=== PATIENT | male | born 1945 | race Caucasian/White ===

== ENCOUNTER 2017-03-28 20:48 | Emergency (ER) | payer MEDICARE ==
--- NOTE | 2017-03-28 21:06 | EDM.PDOC ---
[id number] INFECTED RT EYE Time Seen by Provider: 03/28/17 21:00 Source of Information: Reports: Patient History Limitations: Reports: No Limitations - History of Present Illness INITIAL COMMENTS - FREE TEXT/NARRATIVE: Presented to the ER with concerns of right eyelid infection. Reports that he recently had right eye lid surgery but over the past Few days he noticed some redness and pain at the Lower eyelid and he was concerned that he might have an infection. He called the clinic and was told to come to the ER for further evaluation. Onset: Gradual Duration: Day(s): (ongoing for the past few days) Improves with: Reports: None Worsens with: Reports: None Associated Symptoms: Reports: No Other Symptoms - Related Data Allergies Allergy/AdvReac Type Severity Reaction Status Date / Time No Known Allergies Allergy Verified 05/16/16 12:38 Home Meds: Home Meds Hydrocodone/Acetaminophen [Hydrocodon-Acetaminophn 10-660] 1 each PO TID [History] Terazosin HCl [Terazosin] 4 mg PO DAILY 09/10/13 [History] Albuterol [Ventolin HFA] 2 puff INH Q4HR PRN 01/14/16 [History] Citalopram Hydrobromide [Citalopram HBr] 20 mg PO DAILY 01/14/16 [History] Tiotropium [Spiriva Handihaler] 1 puff INH DAILY 05/16/16 [History] Famotidine [Pepcid AC] 10 mg PO DAILY 06/07/16 [History] Cephalexin [Keflex] 500 mg PO TID #21 cap 03/28/17 [Rx] Past Medical History HEENT History: Reports: Hard of Hearing, Impaired Vision Respiratory History: Reports: Bronchitis, Recurrent, COPD, Other (See Below) Other Respiratory History: emphysema Musculoskeletal History: Reports: Other (See Below) Other Musculoskeletal History: L3,L4,L5 injury Psychiatric History: Reports: Depression, Mood Swings - Past Surgical History Other HEENT Surgeries/Procedures: BILATERAL HEARING AID GI Surgical History: Reports: Appendectomy Male Surgical History: Reports: Prostate Biopsy Social & Family History - Family History Family Medical History: Noncontributory - Tobacco Use Smoking Status *Q: Current Every Day Smoker Years of Tobacco use: 54 Packs/Tins Daily: 1 Used Tobacco, but Quit: No Second Hand Smoke Exposure: No - Caffeine Use Caffeine Use: Reports: None - Alcohol Use Days Per Week of Alcohol Use: 0 - Recreational Drug Use Recreational Drug Use: Yes Drug Use in Last 12 Months: Yes Recreational Drug Type: Reports: Marijuana/Hashish Recreational Drug Use Frequency: Daily ED ROS GENERAL - Review of Systems Review Of Systems: See Below Constitutional: Reports: No Symptoms HEENT: Reports: Other (Erythema of the right Lower eyelid) Respiratory: Reports: No Symptoms Cardiovascular: Reports: No Symptoms Endocrine: Reports: No Symptoms GI/Abdominal: Reports: No Symptoms : Reports: No Symptoms Musculoskeletal: Reports: No Symptoms Skin: Reports: No Symptoms Neurological: Reports: No Symptoms Psychiatric: Reports: No Symptoms Hematologic/Lymphatic: Reports: No Symptoms Immunologic: Reports: No Symptoms ED EXAM, GENERAL - Physical Exam Exam: See Below Exam Limited By: No Limitations General Appearance: Alert, WD/WN, No Apparent Distress Eye Exam: Right Eye: Other (erythema of the right lower eyelid) Ears: Normal External Exam, Normal Canal, Hearing Grossly Normal, Normal TMs Ear Exam: Bilateral Ear: Auricle Normal, TM normal Nose: Normal Inspection, Normal Mucosa Throat/Mouth: Normal Inspection, Normal Lips, Normal Teeth, Normal Oropharynx, Normal Voice, No Airway Compromise Head: Atraumatic, Normocephalic Neck: Normal Inspection, Supple, Non-Tender Respiratory/Chest: No Respiratory Distress, Lungs Clear, Normal Breath Sounds Cardiovascular: Normal Peripheral Pulses, Regular Rate, Rhythm GI/Abdominal: Normal Bowel Sounds, Soft, Non-Tender, No Organomegaly, No Distention, No Abnormal Bruit (Male) Exam: Deferred Rectal (Males) Exam: Deferred Back Exam: Normal Inspection Extremities: Normal Inspection, Normal Range of Motion, Non-Tender, No Pedal Edema, Normal Capillary Refill Neurological: Alert, Oriented, CN II-XII Intact, Normal Cognition, Normal Gait Psychiatric: Normal Affect, Normal Mood Skin Exam: Warm Lymphatic: No Adenopathy Course - Vital Signs Last Recorded V/S: Last Vital Signs Temp 37.0 C 03/28/17 21:12 Pulse 96 03/28/17 21:12 Resp 18 03/28/17 21:12 BP 124/66 03/28/17 21:12 Pulse Ox 95 03/28/17 21:12 - Orders/Labs/Meds Meds: Medications Discontinued Medications Generic Name Dose Route Start Last Admin Trade Name Carlos PRN Reason Stop Dose Admin Cephalexin 500 mg 03/28/17 21:23 03/28/17 21:43 Keflex PO 03/28/17 21:24 500 mg ONETIME ONE Administration Departure - Departure Time of Disposition: 21:02 Disposition: Home, Self-Care 01 Condition: Good Clinical Impression: Blepharitis Qualifiers: Blepharitis type: unspecified type Laterality: right Eyelid: lower Qualified Code(s): H01.002 - Unspecified blepharitis right lower eyelid - Discharge Information Prescriptions: Cephalexin [Keflex] 500 mg PO TID #21 cap Instructions: Blepharitis Referrals: PCP,Not In Area [Primary Care Provider] - Forms: ED Department Discharge Additional Instructions: Follow with PCP Tylenol for pain Return if symptoms worsen Call your Physician or Return to Emergency Department if: * Your condition worsens in any way. * You develop fever greater than 100.4. * You have vomitting that does not stop with medications. * You have pain that is not controlled with medications.
[2017-03-28] MEDS ORDERED: Cephalexin 500 MG Cap PO ONE (21:23)
[2017-03-28 21:25] VITALS: BP 124/66
== END 2017-03-28 21:43 | disposition home or self-care (01) ==
LOC: FB.ED 20:48
DX: H01.002 Unspecified blepharitis right lower eyelid (principal); J44.9 Chronic obstructive pulmonary disease, unspecified; F17.210 Nicotine dependence, cigarettes, uncomplicated; F32.9 Major depressive disorder, single episode, unspecified; Z90.49 Acquired absence of other specified parts of digestive tract; Z79.899 Other long term (current) drug therapy
CPT/HCPCS: 99283; A9270; 99282

== ENCOUNTER 2019-01-18 09:34 | Emergency (ER) | payer MEDICARE ==
[2019-01-18 10:04] VITALS: BP 137/94
--- NOTE | 2019-01-18 10:13 | EDM.PDOC ---
ED HPI GENERAL MEDICAL PROBLEM - General Chief Complaint: Respiratory Problem Stated Complaint: SOB Time Seen by Provider: 01/18/19 09:45 Source of Information: Reports: Patient History Limitations: Reports: No Limitations - History of Present Illness INITIAL COMMENTS - FREE TEXT/NARRATIVE: here with concern for shortness of breath which started this morning. He states his apartment got very cold last night and he woke up this morning cold and has had trouble catching his breath. Has COPD and had a lung test 5 months ago in [place] which was "not good." Does not have any nebulizers at home nor any oxygen. Does not feel lightheaded, although reported on arrival his fingers were slightly tingly. No chest pain. Chronic cough, not worse. Slight stuffy nose. Chilled, no fever, no chest pain. States his heart works good. Using spiriva once daily and albuterol PRN, less than once per week. Has never had feeling like this before, where he just can't get warm. Also wondering if his hands are blue. Smoked 1ppd cigarettes since age 15. Also smokes THC for chronic back pain. - Related Data Allergies Allergy/AdvReac Type Severity Reaction Status Date / Time No Known Allergies Allergy Verified 01/18/19 09:53 Home Meds: Home Meds Hydrocodone/Acetaminophen [Hydrocodon-Acetaminophn 10-660] 1 each PO TID [History] Terazosin HCl [Terazosin] 4 mg PO DAILY 09/10/13 [History] Albuterol [Ventolin HFA] 2 puff INH Q4HR PRN 01/14/16 [History] Citalopram Hydrobromide [Citalopram HBr] 20 mg PO BEDTIME 01/14/16 [History] Tiotropium [Spiriva Handihaler] 1 puff INH DAILY 05/16/16 [History] Cyclobenzaprine HCl 5 mg PO DAILY 01/18/19 [History] Tamsulosin HCl 0.4 mg PO BEDTIME 01/18/19 [History] Past Medical History HEENT History: Reports: Hard of Hearing, Impaired Vision Respiratory History: Reports: Bronchitis, Recurrent, COPD Other Respiratory History: emphysema Musculoskeletal History: Reports: Other (See Below) Other Musculoskeletal History: L3,L4,L5 injury Psychiatric History: Reports: Depression, Mood Swings - Infectious Disease History Infectious Disease History: Reports: Measles, Scarlet Fever - Past Surgical History Other HEENT Surgeries/Procedures: BILATERAL HEARING AID GI Surgical History: Reports: Appendectomy Male Surgical History: Reports: Prostate Biopsy Social & Family History - Family History Family Medical History: Noncontributory - Tobacco Use Smoking Status *Q: Heavy Tobacco Smoker Tobacco Use Within Last Twelve Months: Cigarettes Years of Tobacco use: 68 Smoking Cessation Information Provided To Patient: Yes Smoking Cessation Information Given Comment: has previously tried chantix, patch , plans to try hypnosis next - Caffeine Use Caffeine Use: Reports: Coffee - Alcohol Use Alcohol Use History: No - Recreational Drug Use Recreational Drug Type: Reports: Marijuana/Hashish (for his back pain) ED ROS GENERAL - Review of Systems Review Of Systems: See Below Constitutional: Reports: Chills. Denies: Fever, Weakness, Night Sweats, Diaphoresis, Decreased Appetite HEENT: Reports: No Symptoms Respiratory: Reports: Shortness of Breath, Cough. Denies: Pleuritic Chest Pain , Hemoptysis Cardiovascular: Reports: No Symptoms. Denies: Chest Pain, Blood Pressure Problem, Edema GI/Abdominal: Denies: Abdominal Pain, Diarrhea, Decreased Appetite, Nausea, Vomiting : Reports: No Symptoms Musculoskeletal: Reports: Back Pain (chronic ) Neurological: Denies: Dizziness, Headache, Syncope, Difficulty Walking Hematologic/Lymphatic: Denies: Easy Bleeding, Easy Bruising ED EXAM, GENERAL - Physical Exam Exam: See Below Exam Limited By: No Limitations General Appearance: Alert, Anxious, Other (rapid breathing- appears to be hyperventilating ) Eye Exam: Bilateral Eye: PERRL Ears: Normal External Exam, Normal TMs, Hearing Loss Nose: Normal Inspection. No: Nasal Drainage Throat/Mouth: Normal Inspection, Normal Oropharynx, Normal Voice, No Airway Compromise Neck: Supple. No: Lymphadenopathy (R), Lymphadenopathy (L) Respiratory/Chest: Lungs Clear, No Accessory Muscle Use, Chest Non-Tender, Other (can hold breath for extended timeframe when coached. Stops breathing rapidly when distracted ). No: Crackles, Rales, Wheezing, Prolonged Expiration Cardiovascular: Normal Peripheral Pulses, Regular Rate, Rhythm, No Edema Peripheral Pulses: 2+: Radial (L), Radial (R), Posterior Tibial (L), Posterior Tibial (R) GI/Abdominal: Normal Bowel Sounds, Soft, Non-Tender Extremities: Normal Inspection, Normal Range of Motion Neurological: Alert, Oriented, Normal Cognition, Normal Gait Psychiatric: Anxious Skin Exam: Warm, Dry, Intact Course - Vital Signs Text/Narrative:: initial exam completed. Patient very anxious, breathing rapidly, quite fixated on how cold his apartment was last night and needing oxygen because he can't catch his breath. Vitals and sats normal except for rapid breathing. Lungs clear, no cough noted, minimal decrease in breath sounds; seems more to be hyperventilating. Calmed some with reassurance. Will get labs to r/o occult infection. Last Recorded V/S: Last Vital Signs Temp 36.5 C 01/18/19 09:34 Pulse 69 01/18/19 09:34 Resp 22 H 01/18/19 09:34 BP 137/94 H 01/18/19 09:34 Pulse Ox 97 01/18/19 09:34 - Orders/Labs/Meds Labs: Laboratory Tests 01/18/19 01/18/19 Range/Units 10:18 10:18 WBC 10.1 (4.5-12.0) X10-3/uL RBC 4.24 L (4.30-5.75) x10(6)uL Hgb 13.6 (13.5-17.8) g/dL Hct 40.6 (30.0-51.3) % MCV 95.7 (80-96) fL MCH 32.0 (27.7-33.6) pg MCHC 33.4 (32.2-35.4) g/dL RDW 13.3 (11.5-15.5) % Plt Count 220 (125-369) X10(3)uL Sodium 141 (135-145) mmol/L Potassium 4.6 (3.5-5.3) mmol/L Chloride 104 (100-110) mmol/L Carbon Dioxide 29 (21-32) mmol/L BUN 9 (7-18) mg/dL Creatinine 0.9 (0.70-1.30) mg/dL Est Cr Clr Drug Dosing 53.13 mL/min Estimated GFR (MDRD) > 60 (>60) BUN/Creatinine Ratio 10.0 (9-20) Glucose 93 (80-116) mg/dL Calcium 9.0 (8.6-10.2) mg/dL - Re-Assessments/Exams Free Text/Narrative Re-Assessment/Exam: 01/18/19 10:37 patient greatly reassured and much calmer, able to give a bit more history. Wants to go, thinks he just hyperventilated. Encouraged to wait for labs to make sure no infection given his reported cough and chills. He thinks he was just cold from overnight and says the cough is chronic, and that his nose was slightly plugged this morning which may have been why he was feeling he couldn' t catch his breath, though he was able to clear it on the way here. A few minutes later standing at desk and appears calm and comfortable, chatting with nursing, asking to go. Of note, did not hear him cough while in department. Labs resulted during this time- all within normal limits discharge completed - no change in therapy, no refills needed, f/u as scheduled with PCP on friday01/18/19 10:47 Departure - Departure Time of Disposition: 10:40 Disposition: Home, Self-Care 01 Condition: Good Clinical Impression: Hyperventilation, Anxiety about health COPD (chronic obstructive pulmonary disease) Qualifiers: COPD type: emphysema Emphysema type: unspecified Qualified Code(s): J43.9 - Emphysema, unspecified - Discharge Information *PRESCRIPTION DRUG MONITORING PROGRAM REVIEWED*: No *COPY OF PRESCRIPTION DRUG MONITORING REPORT IN PATIENT MEREDITH: No Instructions: Hyperventilation, Steps to Quit Smoking Referrals: PCP,Not In Area [Primary Care Provider] - Forms: ED Department Discharge Additional Instructions: continue to work on quitting smoking if panicked/hyperventilating - hold breath for 6 seconds, then breath out and back in, hold breath for 6 seconds, until feeling more calm albuterol as needed just like you are doing spiriva daily followup with PCP as scheduled
== END 2019-01-18 10:35 | disposition home or self-care (01) ==
LOC: FB.ED 09:34
DX: J43.9 Emphysema, unspecified (principal); R06.4 Hyperventilation; F41.9 Anxiety disorder, unspecified; F17.210 Nicotine dependence, cigarettes, uncomplicated; Z79.899 Other long term (current) drug therapy
CPT/HCPCS: 36415; 80048; 85027; 99284

== ENCOUNTER 2019-06-06 10:34 | Emergency (ER) | payer MEDICARE ==
[2019-06-06] MEDS ORDERED: diphenhydrAMINE 50 MG/ML SDV IVPUSH ONE (10:57)
--- NOTE | 2019-06-06 11:03 | EDM.PDOC ---
ED HPI GENERAL MEDICAL PROBLEM - General Stated Complaint: SWEATING,NO APPETITE Time Seen by Provider: 06/06/19 10:34 Source of Information: Reports: Patient History Limitations: Reports: No Limitations - History of Present Illness INITIAL COMMENTS - FREE TEXT/NARRATIVE: 73 y.o.w.m -smoker-with a H/O prostate CA, S/P Radiation Tx came to the ed due to chills for several hours. He has generalized "bone pain" for which he takes hydrocodone. No N/V/D no fever. No other acute med issues. BP 144/81 RR 18 Pulse ox 98% on RA Temp 36.5 Onset Date: 06/06/19 Onset Time: 06:00 Duration: Hour(s): Location: Reports: Generalized Quality: Reports: Same as Previous Episode Severity: Mild Improves with: Reports: None Worsens with: Reports: None Context: Reports: Other (H/O Prostate CA S/P Radiation Tx) Associated Symptoms: Reports: Other (chills) - Related Data Allergies Allergy/AdvReac Type Severity Reaction Status Date / Time No Known Allergies Allergy Verified 06/06/19 10:54 Home Meds: Home Meds Hydrocodone/Acetaminophen [Hydrocodon-Acetaminophn 10-660] 1 each PO TID [History] Terazosin HCl [Terazosin] 4 mg PO DAILY 09/10/13 [History] Albuterol [Ventolin HFA] 2 puff INH Q4HR PRN 01/14/16 [History] Citalopram Hydrobromide [Citalopram HBr] 20 mg PO BEDTIME 01/14/16 [History] Tiotropium [Spiriva Handihaler] 1 puff INH DAILY 05/16/16 [History] Cyclobenzaprine HCl 5 mg PO DAILY 01/18/19 [History] Tamsulosin HCl 0.4 mg PO BEDTIME 01/18/19 [History] Past Medical History HEENT History: Reports: Hard of Hearing, Impaired Vision Respiratory History: Reports: Bronchitis, Recurrent, COPD Other Respiratory History: emphysema Musculoskeletal History: Reports: Other (See Below) Other Musculoskeletal History: L3,L4,L5 injury Psychiatric History: Reports: Depression, Mood Swings Oncologic (Cancer) History: Reports: Prostate - Infectious Disease History Infectious Disease History: Reports: Measles, Scarlet Fever - Past Surgical History Other HEENT Surgeries/Procedures: BILATERAL HEARING AID GI Surgical History: Reports: Appendectomy Male Surgical History: Reports: Prostate Biopsy Social & Family History - Family History Family Medical History: Noncontributory - Caffeine Use Caffeine Use: Reports: Coffee ED ROS GENERAL - Review of Systems Review Of Systems: See Below Constitutional: Reports: Chills HEENT: Reports: No Symptoms Respiratory: Reports: No Symptoms Cardiovascular: Reports: No Symptoms Endocrine: Reports: No Symptoms GI/Abdominal: Reports: No Symptoms : Reports: No Symptoms Musculoskeletal: Reports: No Symptoms Skin: Reports: No Symptoms Neurological: Reports: No Symptoms Psychiatric: Reports: No Symptoms Hematologic/Lymphatic: Reports: No Symptoms Immunologic: Reports: No Symptoms ED EXAM, GENERAL - Physical Exam Exam: See Below Exam Limited By: No Limitations General Appearance: Alert, WD/WN, Mild Distress, Cachetic Eye Exam: Bilateral Eye: Normal Inspection Ears: Normal External Exam Ear Exam: Bilateral Ear: Auricle Normal Nose: Normal Inspection, Normal Mucosa, No Blood Throat/Mouth: Normal Lips, Normal Voice, No Airway Compromise, Other (poor dentition) Head: Atraumatic, Normocephalic Neck: Normal Inspection, Supple, Non-Tender Respiratory/Chest: No Respiratory Distress, Lungs Clear Cardiovascular: Normal Peripheral Pulses, Regular Rate, Rhythm, No Edema Peripheral Pulses: 2+: Carotid (R) GI/Abdominal: Normal Bowel Sounds, Soft, Non-Tender, No Organomegaly, No Mass, Pelvis Stable (Male) Exam: Deferred Rectal (Males) Exam: Deferred Back Exam: Normal Inspection, Full Range of Motion Extremities: Normal Inspection, Normal Range of Motion, Non-Tender, No Pedal Edema, Normal Capillary Refill Neurological: Alert, Oriented, CN II-XII Intact, Normal Cognition, Normal Gait Psychiatric: Anxious Skin Exam: Warm, Dry, Intact, Normal Color, No Rash Lymphatic: No Adenopathy Course - Vital Signs Text/Narrative:: 73 y.o.w.m -smoker-with a H/O prostate CA, S/P Radiation Tx came to the ed due to chills for several hours. He has generalized "bone pain" for which he takes hydrocodone. No N/V/D no fever. No other acute med issues. BP 144/81 RR 18 Pulse ox 98% on RA Temp 36.5 PE: Thin 73 y.o.w.m with chills Labs: CBC, BMP were nl, UA showed Microscopic hematuria. BUN/Cr ration 20.9 Imaging: CT abd/pelvis: No acute changes from 06/25/2011, Please see official report Impression: Hematuria. Dehydration, cachexia, Tx: Benadryl. Reexam: Improved, Pt could not wait for the results of the imaging studies. Plan: D/C with instructions Last Recorded V/S: Last Vital Signs Temp 36.5 C 06/06/19 10:34 Pulse 70 06/06/19 10:34 Resp 18 06/06/19 10:34 BP 144/81 H 06/06/19 10:34 Pulse Ox 98 06/06/19 10:34 - Orders/Labs/Meds Orders: Active Orders 24 hr Category Date Time Status Abdomen Pelvis wo Cont [CT] Stat Exams 06/06/19 12:16 Taken Labs: Laboratory Tests 06/06/19 06/06/19 06/06/19 Range/Units 11:05 11:05 11:05 WBC 7.7 (4.5-12.0) X10-3/uL RBC 4.44 (4.30-5.75) x10(6)uL Hgb 14.1 (13.5-17.8) g/dL Hct 41.9 (30.0-51.3) % MCV 94.3 (80-96) fL MCH 31.7 (27.7-33.6) pg MCHC 33.6 (32.2-35.4) g/dL RDW 13.1 (11.5-15.5) % Plt Count 274 (125-369) X10(3)uL MPV 7.6 (7.4-10.4) fL Neut % (Auto) 71.3 (46-82) % Lymph % (Auto) 20.0 (13-37) % [place] % (Auto) 6.7 (4-12) % Eos % (Auto) 1 (1.0-5.0) % Baso % (Auto) 1 (0-2) % Neut # (Auto) 5.6 (1.6-8.3) # Lymph # (Auto) 1.5 (0.6-5.0) # [place] # (Auto) 0.5 (0.0-1.3) # Eos # (Auto) 0.1 (0.0-0.8) # Baso # (Auto) 0.0 (0.0-0.2) # Sodium 141 (135-145) mmol/L Potassium 4.2 (3.5-5.3) mmol/L Chloride 104 (100-110) mmol/L Carbon Dioxide 24 (21-32) mmol/L BUN 23 H D (7-18) mg/dL Creatinine 1.1 (0.70-1.30) mg/dL Est Cr Clr Drug Dosing TNP Estimated GFR (MDRD) > 60 (>60) BUN/Creatinine Ratio 20.9 H (9-20) Glucose 96 (80-116) mg/dL Lactic Acid 1.6 (0.4-2.2) mmol/L Calcium 8.9 (8.6-10.2) mg/dL Urine Color (YELLOW) Urine Appearance (CLEAR) Urine pH (5.0-6.5) Ur Specific [place] (1.010-1.025) Urine Protein (NEGATIVE) mg/dL Urine Glucose (UA) (NORMAL) mg/dL Urine Ketones (NEGATIVE) mg/dL Urine Occult Blood (NEGATIVE) Urine Nitrite (NEGATIVE) Urine Bilirubin (NEGATIVE) Urine Urobilinogen (NEGATIVE) mg/dL Ur Leukocyte Esterase (NEGATIVE) Urine RBC (0-5) Urine WBC (0-5) Ur Squamous Epith Cells (NS,R,O) Urine Bacteria (NS) 06/06/19 Range/Units 11:15 WBC (4.5-12.0) X10-3/uL RBC (4.30-5.75) x10(6)uL Hgb (13.5-17.8) g/dL Hct (30.0-51.3) % MCV (80-96) fL MCH (27.7-33.6) pg MCHC (32.2-35.4) g/dL RDW (11.5-15.5) % Plt Count (125-369) X10(3)uL MPV (7.4-10.4) fL Neut % (Auto) (46-82) % Lymph % (Auto) (13-37) % [place] % (Auto) (4-12) % Eos % (Auto) (1.0-5.0) % Baso % (Auto) (0-2) % Neut # (Auto) (1.6-8.3) # Lymph # (Auto) (0.6-5.0) # [place] # (Auto) (0.0-1.3) # Eos # (Auto) (0.0-0.8) # Baso # (Auto) (0.0-0.2) # Sodium (135-145) mmol/L Potassium (3.5-5.3) mmol/L Chloride (100-110) mmol/L Carbon Dioxide (21-32) mmol/L BUN (7-18) mg/dL Creatinine (0.70-1.30) mg/dL Est Cr Clr Drug Dosing Estimated GFR (MDRD) (>60) BUN/Creatinine Ratio (9-20) Glucose (80-116) mg/dL Lactic Acid (0.4-2.2) mmol/L Calcium (8.6-10.2) mg/dL Urine Color Yellow (YELLOW) Urine Appearance Clear (CLEAR) Urine pH 5.0 (5.0-6.5) Ur Specific [place] 1.020 (1.010-1.025) Urine Protein Trace (NEGATIVE) mg/dL Urine Glucose (UA) Normal (NORMAL) mg/dL Urine Ketones 15 H (NEGATIVE) mg/dL Urine Occult Blood Moderate H (NEGATIVE) Urine Nitrite Negative (NEGATIVE) Urine Bilirubin Negative (NEGATIVE) Urine Urobilinogen 1 H (NEGATIVE) mg/dL Ur Leukocyte Esterase Negative (NEGATIVE) Urine RBC 0-5 (0-5) Urine WBC 0-5 (0-5) Ur Squamous Epith Cells Occasional (NS,R,O) Urine Bacteria Few H (NS) Meds: Medications Discontinued Medications Generic Name Dose Route Start Last Admin Trade Name Freq PRN Reason Stop Dose Admin Diphenhydramine HCl 25 mg 06/06/19 10:57 06/06/19 13:31 Benadryl IVPUSH 06/06/19 10:58 Not Given ONETIME ONE Diphenhydramine HCl 25 mg 06/06/19 11:51 06/06/19 12:12 Benadryl PO 06/06/19 11:52 25 mg ONETIME ONE Administration Departure - Departure Time of Disposition: 13:10 Disposition: Home, Self-Care 01 Condition: Good Clinical Impression: Dehydration Hematuria Qualifiers: Hematuria type: unspecified type Qualified Code(s): R31.9 - Hematuria, unspecified - Discharge Information Instructions: Dehydration, Adult, [id number], Hematuria, Adult Referrals: PCP,Not In Area [Primary Care Provider] - Forms: ED Department Discharge Additional Instructions: Please increase water intake please f/u with your PMD as scheduled on 2018. please come back if your symptoms get worse acutely - My Orders Last 24 Hours: My Active Orders 06/06/19 12:16 Abdomen Pelvis wo Cont [CT] Stat - Assessment/Plan Last 24 Hours: My Active Orders 06/06/19 12:16 Abdomen Pelvis wo Cont [CT] Stat
[2019-06-06 11:35] VITALS: BP 144/81; PULSE 70
[2019-06-06] MEDS ORDERED: diphenhydrAMINE 25 MG Cap PO ONE (11:51)
== END 2019-06-06 13:15 | disposition home or self-care (01) ==
LOC: FB.ED 10:34
DX: E86.0 Dehydration (principal); R31.9 Hematuria, unspecified; J44.9 Chronic obstructive pulmonary disease, unspecified; F32.9 Major depressive disorder, single episode, unspecified; Z85.46 Personal history of malignant neoplasm of prostate; Z79.899 Other long term (current) drug therapy
CPT/HCPCS: 36415; 74176; 80048; 81001; 83605; 85025; 99284; A9270; 99283

== ENCOUNTER 2021-02-06 21:17 | Emergency (ER) | payer MEDICARE ==
[2021-02-06 21:28] VITALS: BP 154/75; PULSE 83
[2021-02-06] MEDS ORDERED: Amoxicillin/Clavulanate K 875-125 MG Tab PO STA (21:33)
--- NOTE | 2021-02-06 21:39 | EDM.PDOC ---
ED HPI GENERAL MEDICAL PROBLEM - General Chief Complaint: Bite:Animal, Insect Stated Complaint: BIT BY DOG Time Seen by Provider: 02/06/21 21:30 Source of Information: Reports: Patient History Limitations: Reports: No Limitations - History of Present Illness INITIAL COMMENTS - FREE TEXT/NARRATIVE: Patient presented to the ED because of a dog bite on the rt hand. The dog which is owned by his best friend is apparently vaccinated. Right Hand Pain Score (Numeric/FACES): 5 - Related Data Allergies Allergy/AdvReac Type Severity Reaction Status Date / Time No Known Allergies Allergy Verified 06/06/19 10:54 Home Meds: Home Meds Hydrocodone/Acetaminophen [Hydrocodon-Acetaminophn 10-660] 1 each PO TID 09/10/13 [History] Terazosin HCl [Terazosin] 4 mg PO DAILY 09/10/13 [History] Albuterol [Ventolin HFA] 2 puff INH Q4HR PRN 01/14/16 [History] Citalopram Hydrobromide [Citalopram HBr] 20 mg PO BEDTIME 01/14/16 [History] Tiotropium [Spiriva Handihaler] 1 puff INH DAILY 05/16/16 [History] Cyclobenzaprine HCl 5 mg PO DAILY 01/18/19 [History] Tamsulosin HCl 0.4 mg PO BEDTIME 01/18/19 [History] Amoxicillin/Potassium Clav [Augmentin 875-125 Tablet] 1 each PO BID #20 tablet 02/06/21 [Rx] Past Medical History HEENT History: Reports: Hard of Hearing, Impaired Vision Respiratory History: Reports: Bronchitis, Recurrent, COPD Other Respiratory History: emphysema Musculoskeletal History: Reports: Other (See Below) Other Musculoskeletal History: L3,L4,L5 injury Psychiatric History: Reports: Depression, Mood Swings Oncologic (Cancer) History: Reports: Lung, Prostate - Infectious Disease History Infectious Disease History: Reports: Measles, Scarlet Fever - Past Surgical History Other HEENT Surgeries/Procedures: BILATERAL HEARING AID GI Surgical History: Reports: Appendectomy Male Surgical History: Reports: Prostate Biopsy Social & Family History - Family History Family Medical History: No Pertinent Family History - Tobacco Use Tobacco Use Status *Q: Current Every Day Tobacco User Years of Tobacco use: 60 Packs/Tins Daily: 1 - Caffeine Use Caffeine Use: Reports: Coffee - Recreational Drug Use Recreational Drug Use: Yes Recreational Drug Type: Reports: Marijuana/Hashish ED ROS GENERAL - Review of Systems Review Of Systems: See Below Constitutional: Reports: No Symptoms HEENT: Reports: No Symptoms Respiratory: Reports: No Symptoms Cardiovascular: Reports: No Symptoms Endocrine: Reports: No Symptoms GI/Abdominal: Reports: No Symptoms : Reports: No Symptoms Musculoskeletal: Reports: No Symptoms Skin: Reports: No Symptoms Neurological: Reports: No Symptoms Psychiatric: Reports: No Symptoms ED EXAM, ANIMAL BITE - Physical Exam Exam: See Below Exam Limited By: No Limitations General Appearance: Alert, No Apparent Distress Ears: Normal External Exam, Normal Canal, Hearing Grossly Normal Nose: Normal Inspection, Normal Mucosa, No Blood Throat/Mouth: Normal Inspection, Normal Lips, Normal Teeth, Normal Gums Head: Atraumatic, Normocephalic Neck: Normal Inspection, Supple, Non-Tender, Full Range of Motion Respiratory/Chest: No Respiratory Distress, Lungs Clear, Normal Breath Sounds, No Accessory Muscle Use, Chest Non-Tender Cardiovascular: Normal Peripheral Pulses, Regular Rate, Rhythm, No Edema, No Gallop, No JVD, No Murmur, No Rub GI/Abdominal: Normal Bowel Sounds, Soft, Non-Tender, No Organomegaly Back Exam: Normal Inspection, Full Range of Motion Extremities: Normal Inspection, Normal Range of Motion, Non-Tender Course - Vital Signs Text/Narrative:: Augmentin 875 mg PO x1 Last Recorded V/S: Last Vital Signs Temp 37.3 C 02/06/21 21:25 Pulse 83 02/06/21 21:25 Resp 18 02/06/21 21:25 BP 154/75 H 02/06/21 21:25 Pulse Ox 91 L 02/06/21 21:25 - Orders/Labs/Meds Meds: Medications Discontinued Medications Generic Name Dose Route Start Last Admin Trade Name Freq PRN Reason Stop Dose Admin Amoxicillin/Clavulanate Potassium 1 tab 02/06/21 21:33 02/06/21 21:46 Amoxicillin/Clavulanate K 875-125 Mg Tab PO 02/06/21 21:34 1 tab NOW STA Administration Departure - Departure Time of Disposition: 21:40 Disposition: Home, Self-Care 01 Condition: Good Clinical Impression: Dog bite - Discharge Information Prescriptions: Amoxicillin/Potassium Clav [Augmentin 875-125 Tablet] 1 each PO BID #20 tablet Instructions: Animal Bite, Adult, [id number] Referrals: Nabeel Garcia [Primary Care Provider] - Forms: ED Department Discharge Additional Instructions: Please read discharge instructions on dog bite Augmentin 875 mg twice daily for 10 days.Take it after a meal because it can cause an upset stomach Follow up as needed Sepsis Event Note (ED) - Evaluation Sepsis Screening Result: No Definite Risk
== END 2021-02-06 21:46 | disposition home or self-care (01) ==
LOC: FB.ED 21:17
DX: S61.451A Open bite of right hand, initial encounter (principal); J44.9 Chronic obstructive pulmonary disease, unspecified; Z72.0 Tobacco use; Z79.899 Other long term (current) drug therapy; W54.0XXA Bitten by dog, initial encounter
CPT/HCPCS: 99283; A9270

== ENCOUNTER 2021-06-17 16:49 | Emergency (ER) | payer MEDICARE ==
[2021-06-17] MEDS ORDERED: Acetaminophen 500 MG Tab PO STA (17:07)
[2021-06-17] MEDS ORDERED: traMADol 50 MG Tab PO STA (17:07)
--- NOTE | 2021-06-17 17:17 | EDM.PDOC ---
ED HPI GENERAL MEDICAL PROBLEM - General Stated Complaint: Rib pain Time Seen by Provider: 06/17/21 16:55 Source of Information: Reports: Patient History Limitations: Reports: No Limitations - History of Present Illness INITIAL COMMENTS - FREE TEXT/NARRATIVE: Patient presented to the ED because of Rt rib pain. He was carrying a heavy grocery yesterday lost his balance and hit his RT rib against a grocery cart. He c/o RT rib pain that is worse with breathing. Right Middle Pain Score (Numeric/FACES): 9 - Related Data Allergies Allergy/AdvReac Type Severity Reaction Status Date / Time No Known Allergies Allergy Verified 06/17/21 17:27 Home Meds: Home Meds Hydrocodone/Acetaminophen [Hydrocodon-Acetaminophn 10660] 1 each PO TID 09/10/13 [History] Terazosin HCl [Terazosin] 4 mg PO DAILY 09/10/13 [History] Albuterol [Ventolin HFA] 2 puff INH Q4HR PRN 01/14/16 [History] Citalopram Hydrobromide [Citalopram HBr] 20 mg PO BEDTIME 01/14/16 [History] Tiotropium [Spiriva Handihaler] 1 puff INH DAILY 05/16/16 [History] Cyclobenzaprine HCl 5 mg PO DAILY 01/18/19 [History] Tamsulosin HCl 0.4 mg PO BEDTIME 01/18/19 [History] Amoxicillin/Potassium Clav [Augmentin 875-125 Tablet] 1 each PO BID #20 tablet 02/06/21 [Rx] Past Medical History HEENT History: Reports: Hard of Hearing, Impaired Vision Respiratory History: Reports: Bronchitis, Recurrent, COPD Other Respiratory History: emphysema Musculoskeletal History: Reports: Other (See Below) Other Musculoskeletal History: L3,L4,L5 injury Psychiatric History: Reports: Depression, Mood Swings Oncologic (Cancer) History: Reports: Lung, Prostate - Infectious Disease History Infectious Disease History: Reports: Measles, Scarlet Fever - Past Surgical History Other HEENT Surgeries/Procedures: BILATERAL HEARING AID GI Surgical History: Reports: Appendectomy Male Surgical History: Reports: Prostate Biopsy Social & Family History - Family History Family Medical History: No Pertinent Family History - Caffeine Use Caffeine Use: Reports: Coffee ED ROS GENERAL - Review of Systems Review Of Systems: See Below Constitutional: Reports: No Symptoms HEENT: Reports: No Symptoms Respiratory: Reports: Pleuritic Chest Pain Cardiovascular: Reports: No Symptoms Endocrine: Reports: No Symptoms GI/Abdominal: Reports: No Symptoms : Reports: No Symptoms Musculoskeletal: Reports: No Symptoms Skin: Reports: No Symptoms Neurological: Reports: No Symptoms Psychiatric: Reports: No Symptoms ED EXAM, GENERAL - Physical Exam Exam: See Below Exam Limited By: No Limitations General Appearance: Alert, No Apparent Distress Ears: Normal External Exam, Normal Canal Nose: Normal Inspection, Normal Mucosa, No Blood Throat/Mouth: Normal Inspection, Normal Lips, Normal Teeth, Normal Gums Head: Atraumatic, Normocephalic Neck: Normal Inspection, Supple, Non-Tender, Full Range of Motion Respiratory/Chest: No Respiratory Distress, Lungs Clear, Normal Breath Sounds, No Accessory Muscle Use, Other (tenderness RT rib) Cardiovascular: Normal Peripheral Pulses, Regular Rate, Rhythm, No Edema, No Gallop, No JVD, No Murmur, No Rub GI/Abdominal: Normal Bowel Sounds, Soft, Non-Tender, No Organomegaly, No Distention, No Abnormal Bruit Back Exam: Normal Inspection, Full Range of Motion Extremities: Normal Inspection, Normal Range of Motion, Non-Tender, No Pedal Edema, Normal Capillary Refill Neurological: Alert, Oriented Psychiatric: Normal Affect Course - Vital Signs Text/Narrative:: CXR and RT rib-fracture 8th and 9th rib RT Tramadol 100 mg PO x1 Tylenol 1000 mg PO x1 Last Recorded V/S: Last Vital Signs Temp 36.7 C 06/17/21 18:00 Pulse 69 06/17/21 18:00 Resp 18 06/17/21 18:00 BP 179/92 H 06/17/21 18:00 Pulse Ox 96 06/17/21 18:00 - Orders/Labs/Meds Meds: Medications Discontinued Medications Generic Name Dose Route Start Last Admin Trade Name Freq PRN Reason Stop Dose Admin Acetaminophen 1,000 mg 06/17/21 17:07 06/17/21 17:10 Acetaminophen 500 Mg Tab PO 06/17/21 17:08 1,000 mg NOW STA Administration Tramadol HCl 100 mg 06/17/21 17:07 06/17/21 17:10 Tramadol 50 Mg Tab PO 06/17/21 17:08 100 mg NOW STA Administration Departure - Departure Time of Disposition: 18:00 Disposition: Home, Self-Care 01 Condition: Good Clinical Impression: Contusion of rib on right side, Pneumonia, Rib fracture - Discharge Information Instructions: Rib Contusion Referrals: Nabeel Garcia [Primary Care Provider] - Forms: ED Department Discharge Additional Instructions: Please read discharge instructions on rib contusion Take you hydrocodone as prescribed We will call you if there is any change on your xray reading Follow up as needed
[2021-06-17 18:16] VITALS: BP 179/92; PULSE 69
--- NOTE | 2021-06-18 11:59 | CR ---
RIGHT RIBS WITH CHEST INDICATION: Right rib injury. FINDINGS: Two PA views of the chest with four images of the right ribs additionally were obtained 06/17/21 and compared with 05/16/16 chest x-ray. The heart appeared normal in size and shape. The aorta is minimally tortuous. A minimal dextroconcave scoliosis is suggested of the thoracic spine. A definite active infiltrate, effusion, contusion or pneumothorax was not identified. Findings compatible with COPD are noted. This should be correlated clinically. A BB overlying the lower lateral rib ribs shows the site of injury. There are fractures at the tips of the 8th and 9th ribs with only very minimal offset. No other definite bony abnormality was identified. IMPRESSION: Rib fractures at the 8th and 9th right rib anterolateral tips. Report was called to Dr. Guerrero at 1118 hours 06/18/21. [facility]
== END 2021-06-17 18:10 | disposition home or self-care (01) ==
LOC: FB.ED 16:49
DX: S22.41XA Multiple fractures of ribs, right side, initial encounter for closed fracture (principal); J18.9 Pneumonia, unspecified organism; J44.9 Chronic obstructive pulmonary disease, unspecified; W22.09XA Striking against other stationary object, initial encounter
CPT/HCPCS: 71101; 99283; A9270

== ENCOUNTER 2022-09-10 17:37 | Emergency (ER) | payer MEDICARE ==
[2022-09-10 18:58] VITALS: BP 178/112; PULSE 78
== END 2022-09-10 19:00 | disposition home or self-care (01) ==
LOC: FB.ED 17:37
DX: H10.9 Unspecified conjunctivitis (principal); J44.9 Chronic obstructive pulmonary disease, unspecified; Z79.899 Other long term (current) drug therapy
CPT/HCPCS: 99283

== ENCOUNTER 2022-10-14 12:29 | Observation (INO) | payer MEDICARE ==
[2022-10-14 13:41] LABS: ESTIMATED GFR 70 mL/min (>60)
[2022-10-14 13:42] LABS: BASE EXCESS VENOUS,POC 5 mmol/L (-2 - 3+); PCO2 VENOUS,POC 52 mmHg (41-51); PH VENOUS,POC 7.39 pH Units (7.32-7.43)
[2022-10-14 14:00] LABS: CORONAVIRUS COVID-19 NAA NEGATIVE (NEGATIVE)
[2022-10-14] MEDS ORDERED: Sodium Chloride 0.9% 500 ML IV ONE (14:19)
[2022-10-14] MEDS ORDERED: Iopamidol 755 Mg/ML 75 ML Bottle IV ONE (15:02)
[2022-10-14] MEDS ORDERED: Albuterol/Ipratropium 3.0-0.5 MG/3 ML Neb Soln NEB ONE (17:14)
[2022-10-14] MEDS ORDERED: methylPREDNISolone Sodium Succinate 40 MG/1 ML SDV IVPUSH ONE (17:15)
[2022-10-14] MEDS ORDERED: Ondansetron 4 MG/2 ML SDV IV PRN (17:20)
[2022-10-14] MEDS ORDERED: Sodium Chloride 0.9% 10 ML Syringe FLUSH PRN (17:20)
[2022-10-14] MEDS ORDERED: Acetaminophen 325 MG Tab PO PRN (17:20)
[2022-10-14] MEDS ORDERED: cefTRIAXone 2 GM Vial IVPUSH SCH (17:30)
[2022-10-14] MEDS: Sodium Chloride 0.9% 10 ML Syringe FLUSH PRN (17:30)
[2022-10-14] MEDS ORDERED: Nicotine 21 MG/24 Hr Patch TRDERM SCH (17:30)
[2022-10-14] MEDS ORDERED: Nicotine 14 MG/24 Hr Patch TRDERM SCH (18:15)
[2022-10-14] MEDS: Doxycycline 100 MG Tab PO SCH (18:21)
[2022-10-14] MEDS: Acetaminophen/HYDROcodone 325-10 MG Tab PO SCH ×2 (18:21→23:59)
[2022-10-14] MEDS: Albuterol/Ipratropium 3.0-0.5 MG/3 ML Neb Soln NEB SCH (20:52)
[2022-10-14] MEDS: Gabapentin 300 MG Cap PO SCH (20:52)
[2022-10-14] MEDS ORDERED: Melatonin 3 MG Tab PO SCH (21:00)
[2022-10-15] MEDS: Sodium Chloride 0.9% 10 ML Syringe FLUSH PRN (04:38)
[2022-10-15] MEDS ORDERED: methylPREDNISolone Sodium Succinate 40 MG/1 ML SDV IVPUSH SCH (05:30)
[2022-10-15] MEDS: Acetaminophen/HYDROcodone 325-10 MG Tab PO SCH ×2 (06:21→11:42)
[2022-10-15] MEDS: Doxycycline 100 MG Tab PO SCH (06:22)
[2022-10-15] MEDS: Albuterol/Ipratropium 3.0-0.5 MG/3 ML Neb Soln NEB SCH ×2 (06:22→11:14)
[2022-10-15 06:43] LABS: ESTIMATED GFR 78 mL/min (>60)
[2022-10-15] MEDS: Gabapentin 300 MG Cap PO SCH (08:46)
[2022-10-15 11:11] VITALS: BP 107/63; PULSE 71
[2022-10-15] MEDS ORDERED: Nicotine 14 MG/24 Hr Patch TRDERM SCH (18:00)
== END 2022-10-15 15:23 | disposition home health service (06) ==
LOC: FB.ED 12:29 → FB.MS 17:15
PROVIDERS: ADMIT Family Medicine; ATTEND Student in an Organized Health Care Education/Training Program
DX: J43.2 Centrilobular emphysema (principal); J96.21 Acute and chronic respiratory failure with hypoxia; J96.22 Acute and chronic respiratory failure with hypercapnia; F32.A Depression, unspecified; J40 Bronchitis, not specified as acute or chronic; F41.8 Other specified anxiety disorders; F17.210 Nicotine dependence, cigarettes, uncomplicated; G89.29 Other chronic pain; Z79.899 Other long term (current) drug therapy; Z98.890 Other specified postprocedural states; Z20.822 Contact with and (suspected) exposure to COVID-19
CPT/HCPCS: 0241U; 36415; 71045; 71275; 80048; 80053; 83735; 83880; 84484; 85025; 85379; 86140; 90662; 93005; 93010; 94640; 96374; 96375; 96376; 99222; 99238; 99284; 99285-25; A9270-GY; G0008; G0378; J0696; J2920; J3490; J7040; J7620; Q9967

== ENCOUNTER 2022-10-29 09:34 | Emergency (ER) | payer MEDICARE ==
[2022-10-29 10:12] LABS: ESTIMATED GFR 89 mL/min (>60)
[2022-10-29 11:02] LABS: CORONAVIRUS COVID-19 NAA POSITIVE (NEGATIVE)
[2022-10-29] MEDS ORDERED: Albuterol/Ipratropium 3.0-0.5 MG/3 ML Neb Soln NEB ONE (11:57)
[2022-10-29 14:37] VITALS: BP 134/86; PULSE 82
== END 2022-10-29 12:45 | disposition home or self-care (01) ==
LOC: FB.ED 09:34
DX: U07.1 COVID-19 (principal); J43.9 Emphysema, unspecified; Z79.899 Other long term (current) drug therapy
CPT/HCPCS: 0241U; 36415; 71045; 80053; 83880; 84484; 85025; 85610; 85730; 93005; 99285; J7620

== ENCOUNTER 2022-12-31 10:04 | Emergency (ER) | payer MEDICARE ==
[2022-12-31 11:25] VITALS: BP 139/73; PULSE 72
== END 2022-12-31 11:33 | disposition home or self-care (01) ==
LOC: FB.ED 10:04
DX: J44.9 Chronic obstructive pulmonary disease, unspecified (principal); Z72.0 Tobacco use
CPT/HCPCS: 71045; 93005; 99285

== ENCOUNTER 2023-08-09 13:28 | Emergency (ER) | payer MEDICARE ==
[2023-08-09] MEDS ORDERED: Sodium Chloride 0.9% 10 ML Syringe FLUSH PRN ×2 (14:06→14:18)
[2023-08-09] MEDS ORDERED: Alum Hydroxide/Mag Hydroxide 15 ML, Lidocaine 2% 15 ML PO ONE ×2 (14:21)
[2023-08-09] MEDS ORDERED: Sodium Chloride 0.9% 1,000 ML IV SCH (14:30)
[2023-08-09 14:36] LABS: BASOPHILS ABSOLUTE AUTO 0.1 x10-3/uL (0.0-0.3); BLOOD UREA NITROGEN,BUN 16 mg/dL (7-18); CALCIUM 9.2 mg/dL (8.6-10.2); CARBON DIOXIDE,CO2 32 mmol/L (21-32); CHLORIDE,CL 105 mmol/L (100-110); EOSINOPHILS ABSOLUTE AUTO 0.3 x10-3/uL (0.0-0.6); EOSINOPHILS PERCENT AUTO 2.8 % (0.1-6.8); EST CRCL DRUG DOSING (CG) 40.95 mL/min; ESTIMATED GFR 78 mL/min (>60); GLUCOSE RANDOM 101 mg/dL (80-116); HEMATOCRIT 37.7 % (38.3-50.1); HEMOGLOBIN 12.9 g/dL (12.9-17.7); LYMPHOCYTES ABSOLUTE AUTO 1.5 x10-3/uL (0.5-4.5); MEAN CORPUSCULAR HEMOGLOBIN 32.8 pg (27.0-33.3); MEAN CORPUSCULAR HGB CONC 34.1 g/dL (28.7-35.3); MEAN CORPUSCULAR VOLUME 96.3 fL (80.8-98.7); MEAN PLATELET VOLUME 7.4 fL (6.7-11.0); MONOCYTES ABSOLUTE AUTO 0.9 x10-3/uL (0.0-1.2); MONOCYTES PERCENT AUTO 9.3 % (5.5-15.2); NEUTROPHILS ABSOLUTE AUTO 6.7 x10-3/uL (1.7-6.9); NEUTROPHILS PERCENT AUTO 70.9 % (40.3-71.8); PLATELET COUNT,PLT 215 x10(3)uL (117-477); RED BLOOD CELL COUNT 3.92 x10(6)uL (3.90-5.90); RED CELL DISTRIBUTION WIDTH 14.6 % (12.4-15.0); SODIUM,NA 141 mmol/L (135-145); WHITE BLOOD CELL COUNT,WBC 9.5 x10-3/uL (3.2-10.1)
[2023-08-09 14:42] LABS: A/G RATIO 0.8; ALANINE AMINOTRANSFERASE,ALT 19 U/L (12-36); ALBUMIN 3.6 g/dL (3.2-4.6); ALKALINE PHOSPHATASE 82 IU/L (56-112); AMYLASE 38 U/L (25-115); ASPARTATE AMNIOTRANSFERASE,AST 17 IU/L (5-25); BILIRUBIN TOTAL 0.5 mg/dL (0.1-1.3); PROTEIN TOTAL,TP 7.9 g/dL (6.0-8.0)
[2023-08-09 14:45] LABS: BILIRUBIN,URINE NEGATIVE (NEGATIVE); GLUCOSE,URINE NORMAL (NORMAL); KETONES,URINE NEGATIVE (NEGATIVE); LEUKOCYTE ESTERASE,URINE NEGATIVE (NEGATIVE); NITRITE,URINE NEGATIVE (NEGATIVE); OCCULT BLOOD,URINE MODERATE (NEGATIVE); PROTEIN,URINE NEGATIVE (NEGATIVE); UROBILINOGEN,URINE NORMAL (NEGATIVE)
[2023-08-09 14:48] LABS: APPEARANCE,URINE CLEAR (CLEAR); COLOR,URINE YELLOW (YELLOW)
[2023-08-09 14:49] LABS: BACTERIA,URINE OCCASIONAL (NS); RBC,URINE 0-5 (0-5); SQUAMOUS EPITHELIAL CELLS,UR OCCASIONAL (NS,R,O); WBC,URINE 0-5 (0-5)
[2023-08-09] MEDS ORDERED: Iopamidol 755 Mg/ML 100 ML Bottle IV SCH (15:45)
[2023-08-09 18:09] VITALS: BP 150/64; PULSE 89
== END 2023-08-09 17:45 | disposition home or self-care (01) ==
LOC: FB.ED 13:28
DX: K52.9 Noninfective gastroenteritis and colitis, unspecified (principal); J44.9 Chronic obstructive pulmonary disease, unspecified; C34.90 Malignant neoplasm of unspecified part of unspecified bronchus or lung; C61 Malignant neoplasm of prostate; F17.210 Nicotine dependence, cigarettes, uncomplicated; Z90.49 Acquired absence of other specified parts of digestive tract; Z79.899 Other long term (current) drug therapy; Z86.16 Personal history of COVID-19
CPT/HCPCS: 36415; 71045; 74177; 80053; 81001; 82150; 83690; 84484; 85025; 93005; 96360; 99285; A9270; J3490; J7030; Q9967

== ENCOUNTER 2024-01-26 12:38 | Emergency (ER) | payer MEDICARE ==
[2024-01-26 13:10] VITALS: BP 159/84; PULSE 71
[2024-01-26 13:23] LABS: BILIRUBIN,URINE NEGATIVE (NEGATIVE); GLUCOSE,URINE NORMAL (NORMAL); KETONES,URINE NEGATIVE (NEGATIVE); LEUKOCYTE ESTERASE,URINE NEGATIVE (NEGATIVE); NITRITE,URINE NEGATIVE (NEGATIVE); OCCULT BLOOD,URINE TRACE (NEGATIVE); PROTEIN,URINE NEGATIVE (NEGATIVE); UROBILINOGEN,URINE NORMAL (NEGATIVE)
[2024-01-26 13:26] LABS: APPEARANCE,URINE CLEAR (CLEAR); BACTERIA,URINE FEW (NS); COLOR,URINE YELLOW (YELLOW); RBC,URINE 0-5 (0-5); SQUAMOUS EPITHELIAL CELLS,UR RARE (NS,R,O); WBC,URINE 0-5 (0-5)
[2024-01-26 14:03] LABS: BASOPHILS ABSOLUTE AUTO 0.1 x10-3/uL (0.0-0.3); BASOPHILS PERCENT AUTO 0.9 % (0.3-3.8); EOSINOPHILS ABSOLUTE AUTO 0.4 x10-3/uL (0.0-0.6); EOSINOPHILS PERCENT AUTO 6.1 % (0.1-6.8); HEMATOCRIT 34.8 % (38.3-50.1); HEMOGLOBIN 11.5 g/dL (12.9-17.7); LYMPHOCYTES ABSOLUTE AUTO 1.9 x10-3/uL (0.5-4.5); LYMPHOCYTES PERCENT AUTO 27.3 % (15.8-45.3); MEAN CORPUSCULAR HEMOGLOBIN 32.3 pg (27.0-33.3); MEAN CORPUSCULAR HGB CONC 33.1 g/dL (28.7-35.3); MEAN CORPUSCULAR VOLUME 97.4 fL (80.8-98.7); MEAN PLATELET VOLUME 7.4 fL (6.7-11.0); MONOCYTES ABSOLUTE AUTO 0.6 x10-3/uL (0.0-1.2); MONOCYTES PERCENT AUTO 7.9 % (5.5-15.2); NEUTROPHILS PERCENT AUTO 57.8 % (40.3-71.8); PLATELET COUNT,PLT 201 x10(3)uL (117-477); RED BLOOD CELL COUNT 3.57 x10(6)uL (3.90-5.90); RED CELL DISTRIBUTION WIDTH 14.5 % (12.4-15.0)
[2024-01-26 14:11] LABS: BASE EXCESS VENOUS,POC 1 mmol/L (-2 - 3+); PCO2 VENOUS,POC 37 mmHg (41-51); PH VENOUS,POC 7.44 pH Units (7.32-7.43)
[2024-01-26 14:11] LABS: BLOOD UREA NITROGEN,BUN 21 mg/dL (7-18); BUN/CREATININE RATIO 19.1 (9-20); CALCIUM 8.5 mg/dL (8.6-10.2); CARBON DIOXIDE,CO2 31 mmol/L (21-32); CHLORIDE,CL 110 mmol/L (100-110); CREATININE 1.1 mg/dL (0.70-1.30); EST CRCL DRUG DOSING (CG) 35.55 mL/min; ESTIMATED GFR 70 mL/min (>60); GLUCOSE RANDOM 88 mg/dL (80-116); SODIUM,NA 149 mmol/L (135-145)
[2024-01-26 14:22] LABS: ALANINE AMINOTRANSFERASE,ALT 19 U/L (12-36); ALBUMIN 3.4 g/dL (3.2-4.6); ALKALINE PHOSPHATASE 75 IU/L (56-112); ASPARTATE AMNIOTRANSFERASE,AST 29 IU/L (5-25); BILIRUBIN TOTAL 0.3 mg/dL (0.1-1.3); PROTEIN TOTAL,TP 6.9 g/dL (6.0-8.0)
[2024-01-26 14:26] LABS: TROPONIN I 10.7 pg/mL (4.0-60.3); TSH ULTRASENSITIVE 1.48 IU/mL (0.36-3.74)
[2024-01-26 14:31] LABS: C-REACTIVE PROTEIN < 0.50 mg/dL (<0.50)
[2024-01-26] MEDS: Iopamidol 755 Mg/ML 100 ML Bottle IV SCH (14:52)
== END 2024-01-26 17:22 | disposition home or self-care (01) ==
LOC: FB.ED 12:38
DX: E86.0 Dehydration (principal); R79.89 Other specified abnormal findings of blood chemistry; R91.8 Other nonspecific abnormal finding of lung field; R63.4 Abnormal weight loss; R29.6 Repeated falls; Z68.1 Body mass index [BMI] 19.9 or less, adult; Z79.899 Other long term (current) drug therapy
CPT/HCPCS: 36415; 70450; 71260; 74177; 80053; 81001; 84153; 84443; 84484; 85025; 86140; 99284; Q9967

== ENCOUNTER 2024-06-29 14:43 | Emergency (ER) | payer MEDICARE ==
[2024-06-29 14:58] VITALS: PULSE 78
[2024-06-29 15:33] LABS: BASOPHILS ABSOLUTE AUTO 0.1 x10-3/uL (0.0-0.3); EOSINOPHILS ABSOLUTE AUTO 0.3 x10-3/uL (0.0-0.6); EOSINOPHILS PERCENT AUTO 5.1 % (0.1-6.8); HEMATOCRIT 35.7 % (38.3-50.1); HEMOGLOBIN 12.1 g/dL (12.9-17.7); LYMPHOCYTES ABSOLUTE AUTO 1.4 x10-3/uL (0.5-4.5); LYMPHOCYTES PERCENT AUTO 26.2 % (15.8-45.3); MEAN CORPUSCULAR HEMOGLOBIN 32.8 pg (27.0-33.3); MEAN CORPUSCULAR HGB CONC 33.9 g/dL (28.7-35.3); MEAN CORPUSCULAR VOLUME 96.9 fL (80.8-98.7); MEAN PLATELET VOLUME 7.5 fL (6.7-11.0); MONOCYTES ABSOLUTE AUTO 0.5 x10-3/uL (0.0-1.2); MONOCYTES PERCENT AUTO 8.4 % (5.5-15.2); NEUTROPHILS ABSOLUTE AUTO 3.3 x10-3/uL (1.7-6.9); NEUTROPHILS PERCENT AUTO 59.3 % (40.3-71.8); PLATELET COUNT,PLT 193 x10(3)uL (117-477); RED BLOOD CELL COUNT 3.69 x10(6)uL (3.90-5.90); RED CELL DISTRIBUTION WIDTH 14.2 % (12.4-15.0); WHITE BLOOD CELL COUNT,WBC 5.5 x10-3/uL (3.2-10.1)
[2024-06-29 15:35] LABS: BLOOD UREA NITROGEN,BUN 15 mg/dL (7-18); BUN/CREATININE RATIO 12.5 (9-20); CALCIUM 8.5 mg/dL (8.6-10.2); CARBON DIOXIDE,CO2 31 mmol/L (21-32); CHLORIDE,CL 105 mmol/L (100-110); CREATININE 1.2 mg/dL (0.70-1.30); EST CRCL DRUG DOSING (CG) 33.94 mL/min; ESTIMATED GFR 63 mL/min (>60); GLUCOSE RANDOM 102 mg/dL (80-116); POTASSIUM,K 4.8 mmol/L (3.5-5.3); SODIUM,NA 141 mmol/L (135-145)
[2024-06-29 15:37] LABS: INR 0.97 (1.00-1.24); PROTHROMBIN TIME 10.1 sec (9.0-11.1)
[2024-06-29 15:41] LABS: A/G RATIO 1.1; ALANINE AMINOTRANSFERASE,ALT 12 U/L (12-36); ALBUMIN 3.6 g/dL (3.2-4.6); ALKALINE PHOSPHATASE 71 IU/L (56-112); ASPARTATE AMNIOTRANSFERASE,AST 11 IU/L (5-25); BILIRUBIN TOTAL 0.4 mg/dL (0.1-1.3)
[2024-06-29 15:55] LABS: APPEARANCE,URINE CLEAR (CLEAR); BILIRUBIN,URINE NEGATIVE (NEGATIVE); COLOR,URINE YELLOW (YELLOW); GLUCOSE,URINE NORMAL (NORMAL); KETONES,URINE NEGATIVE (NEGATIVE); LEUKOCYTE ESTERASE,URINE NEGATIVE (NEGATIVE); NITRITE,URINE NEGATIVE (NEGATIVE); OCCULT BLOOD,URINE NEGATIVE (NEGATIVE); PROTEIN,URINE TRACE mg/dL (NEGATIVE); UROBILINOGEN,URINE NORMAL (NEGATIVE)
[2024-06-29 15:57] LABS: BACTERIA,URINE FEW (NS); RBC,URINE 0-5 (0-5); SQUAMOUS EPITHELIAL CELLS,UR FEW (NS,R,O); WBC,URINE 0-5 (0-5)
[2024-06-29 17:00] VITALS: BP 157/70
== END 2024-06-29 16:15 | disposition home or self-care (01) ==
LOC: FB.ED 14:43
DX: R53.1 Weakness (principal); J44.9 Chronic obstructive pulmonary disease, unspecified; R29.6 Repeated falls; Z86.16 Personal history of COVID-19; Z90.49 Acquired absence of other specified parts of digestive tract; Z79.899 Other long term (current) drug therapy
CPT/HCPCS: 36415; 70450; 71045; 80053; 81001; 83880; 84484; 85025; 85610; 93005; 93010; 99284; 99285; U0002

== ENCOUNTER 2024-07-06 14:38 | Inpatient (IN) | payer OTHER, MEDICARE ==
[2024-07-06] MEDS ORDERED: Albuterol/Ipratropium 3.0-0.5 MG/3 ML Neb Soln INH PRN (18:04)
[2024-07-06] MEDS ORDERED: Cyclobenzaprine 10 MG Tab PO PRN (18:04)
[2024-07-06] MEDS: Acetaminophen/HYDROcodone 325-10 MG Tab PO PRN (18:51)
[2024-07-06] MEDS: Tamsulosin 0.4 MG Cap.ER PO SCH (20:20)
[2024-07-06] MEDS: Gabapentin 300 MG Cap PO SCH (20:20)
[2024-07-06] MEDS: traZODone 50 MG Tab PO SCH (20:20)
[2024-07-06] MEDS ORDERED: Acetaminophen/HYDROcodone 325-10 MG Tab PO SCH (21:00)
[2024-07-06] MEDS ORDERED: Naloxone 0.4 MG/ML SDV IVPUSH PRN (22:54)
[2024-07-06] MEDS: HYDROmorphone 2 MG/ML SDV IM ONE (23:21)
[2024-07-07] MEDS: HYDROmorphone 2 MG Tab PO ONE (04:24)
[2024-07-07 06:26] LABS: BASOPHILS PERCENT AUTO 0.5 % (0.3-3.8); EOSINOPHILS ABSOLUTE AUTO 0.3 x10-3/uL (0.0-0.6); EOSINOPHILS PERCENT AUTO 3.2 % (0.1-6.8); HEMATOCRIT 34.6 % (38.3-50.1); HEMOGLOBIN 11.8 g/dL (12.9-17.7); LYMPHOCYTES PERCENT AUTO 12.4 % (15.8-45.3); MEAN CORPUSCULAR HEMOGLOBIN 33.2 pg (27.0-33.3); MEAN CORPUSCULAR HGB CONC 34.1 g/dL (28.7-35.3); MEAN CORPUSCULAR VOLUME 97.3 fL (80.8-98.7); MEAN PLATELET VOLUME 7.3 fL (6.7-11.0); MONOCYTES ABSOLUTE AUTO 0.8 x10-3/uL (0.0-1.2); MONOCYTES PERCENT AUTO 9.4 % (5.5-15.2); NEUTROPHILS ABSOLUTE AUTO 6.2 x10-3/uL (1.7-6.9); NEUTROPHILS PERCENT AUTO 74.5 % (40.3-71.8); PLATELET COUNT,PLT 157 x10(3)uL (117-477); RED BLOOD CELL COUNT 3.56 x10(6)uL (3.90-5.90); RED CELL DISTRIBUTION WIDTH 14.3 % (12.4-15.0); WHITE BLOOD CELL COUNT,WBC 8.4 x10-3/uL (3.2-10.1)
[2024-07-07 06:36] LABS: ALANINE AMINOTRANSFERASE,ALT 21 U/L (12-36); ALBUMIN 3.1 g/dL (3.2-4.6); ALKALINE PHOSPHATASE 77 IU/L (56-112); ASPARTATE AMNIOTRANSFERASE,AST 11 IU/L (5-25); BILIRUBIN TOTAL 0.4 mg/dL (0.1-1.3); BLOOD UREA NITROGEN,BUN 21 mg/dL (7-18); BUN/CREATININE RATIO 19.1 (9-20); CALCIUM 7.9 mg/dL (8.6-10.2); CARBON DIOXIDE,CO2 32 mmol/L (21-32); CHLORIDE,CL 105 mmol/L (100-110); CREATININE 1.1 mg/dL (0.70-1.30); ESTIMATED GFR 70 mL/min (>60); GLUCOSE RANDOM 118 mg/dL (80-116); POTASSIUM,K 4.5 mmol/L (3.5-5.3); PROTEIN TOTAL,TP 6.2 g/dL (6.0-8.0); SODIUM,NA 143 mmol/L (135-145)
[2024-07-07] MEDS: Tiotropium Bromide 4 GM Inhalation Spray (2.5mcg/1 dose; 10 doses) INH SCH (08:39)
[2024-07-07] MEDS: Citalopram 20 MG Tab PO SCH (08:39)
[2024-07-07] MEDS: buPROPion 150 MG Tab.SR PO SCH (08:42)
[2024-07-07 11:48] LABS: INFLUENZA A NAA NEGATIVE (NEGATIVE); INFLUENZA B NAA NEGATIVE (NEGATIVE); RESPIRATORY SYNCYTIAL VIR NAA NEGATIVE (NEGATIVE)
[2024-07-07 11:50] LABS: CORONAVIRUS COVID-19 NAA NEGATIVE (NEGATIVE)
[2024-07-07] MEDS: predniSONE 20 MG Tab PO SCH (12:52)
[2024-07-07] MEDS: Albuterol/Ipratropium 3.0-0.5 MG/3 ML Neb Soln INH SCH (12:52)
[2024-07-07] MEDS: Heparin Sodium 5,000 Units/ML Vial SUBCUT SCH (12:52)
[2024-07-07] MEDS: Acetaminophen/HYDROcodone 325-10 MG Tab PO SCH (14:37)
[2024-07-08 06:13] LABS: BASOPHILS PERCENT AUTO 0.1 % (0.3-3.8); EOSINOPHILS PERCENT AUTO 0.1 % (0.1-6.8); HEMATOCRIT 35.4 % (38.3-50.1); HEMOGLOBIN 11.8 g/dL (12.9-17.7); LYMPHOCYTES ABSOLUTE AUTO 0.9 x10-3/uL (0.5-4.5); LYMPHOCYTES PERCENT AUTO 9.2 % (15.8-45.3); MEAN CORPUSCULAR HEMOGLOBIN 32.5 pg (27.0-33.3); MEAN CORPUSCULAR HGB CONC 33.3 g/dL (28.7-35.3); MEAN CORPUSCULAR VOLUME 97.5 fL (80.8-98.7); MEAN PLATELET VOLUME 7.4 fL (6.7-11.0); MONOCYTES ABSOLUTE AUTO 0.7 x10-3/uL (0.0-1.2); MONOCYTES PERCENT AUTO 7.5 % (5.5-15.2); NEUTROPHILS PERCENT AUTO 83.1 % (40.3-71.8); PLATELET COUNT,PLT 152 x10(3)uL (117-477); RED BLOOD CELL COUNT 3.63 x10(6)uL (3.90-5.90); RED CELL DISTRIBUTION WIDTH 14.2 % (12.4-15.0); WHITE BLOOD CELL COUNT,WBC 9.6 x10-3/uL (3.2-10.1)
[2024-07-08 06:16] LABS: BLOOD UREA NITROGEN,BUN 22 mg/dL (7-18); CALCIUM 8.6 mg/dL (8.6-10.2); CARBON DIOXIDE,CO2 33 mmol/L (21-32); CHLORIDE,CL 103 mmol/L (100-110); CREATININE 1.1 mg/dL (0.70-1.30); ESTIMATED GFR 70 mL/min (>60); GLUCOSE RANDOM 130 mg/dL (80-116); POTASSIUM,K 5.1 mmol/L (3.5-5.3); SODIUM,NA 142 mmol/L (135-145)
[2024-07-09 06:23] VITALS: PULSE 72
[2024-07-09 06:52] LABS: BASOPHILS PERCENT AUTO 0.2 % (0.3-3.8); EOSINOPHILS PERCENT AUTO 0.3 % (0.1-6.8); HEMATOCRIT 34.8 % (38.3-50.1); HEMOGLOBIN 11.7 g/dL (12.9-17.7); LYMPHOCYTES ABSOLUTE AUTO 1.3 x10-3/uL (0.5-4.5); LYMPHOCYTES PERCENT AUTO 10.9 % (15.8-45.3); MEAN CORPUSCULAR HEMOGLOBIN 32.8 pg (27.0-33.3); MEAN CORPUSCULAR HGB CONC 33.6 g/dL (28.7-35.3); MEAN CORPUSCULAR VOLUME 97.6 fL (80.8-98.7); MEAN PLATELET VOLUME 8.2 fL (6.7-11.0); MONOCYTES ABSOLUTE AUTO 1.1 x10-3/uL (0.0-1.2); MONOCYTES PERCENT AUTO 9.6 % (5.5-15.2); NEUTROPHILS ABSOLUTE AUTO 9.1 x10-3/uL (1.7-6.9); PLATELET COUNT,PLT 162 x10(3)uL (117-477); RED BLOOD CELL COUNT 3.56 x10(6)uL (3.90-5.90); RED CELL DISTRIBUTION WIDTH 14.3 % (12.4-15.0); WHITE BLOOD CELL COUNT,WBC 11.5 x10-3/uL (3.2-10.1)
[2024-07-09 06:53] LABS: BLOOD UREA NITROGEN,BUN 23 mg/dL (7-18); BUN/CREATININE RATIO 20.9 (9-20); CALCIUM 8.1 mg/dL (8.6-10.2); CARBON DIOXIDE,CO2 31 mmol/L (21-32); CHLORIDE,CL 101 mmol/L (100-110); CREATININE 1.1 mg/dL (0.70-1.30); ESTIMATED GFR 70 mL/min (>60); GLUCOSE RANDOM 105 mg/dL (80-116); POTASSIUM,K 4.4 mmol/L (3.5-5.3); SODIUM,NA 139 mmol/L (135-145)
[2024-07-09 14:48] VITALS: BP 152/76
== END 2024-07-09 14:35 | disposition home health service (06) | DRG 535 ==
LOC: FB.ED 14:38 → FB.MS 17:23
PROVIDERS: ADMIT Internal Medicine; ATTEND Family Medicine
DX: S32.512A Fracture of superior rim of left pubis, initial encounter for closed fracture (principal); S32.592A Other specified fracture of left pubis, initial encounter for closed fracture; J44.9 Chronic obstructive pulmonary disease, unspecified; Z90.49 Acquired absence of other specified parts of digestive tract; J96.21 Acute and chronic respiratory failure with hypoxia; J44.1 Chronic obstructive pulmonary disease with (acute) exacerbation; W19.XXXA Unspecified fall, initial encounter; K21.9 Gastro-esophageal reflux disease without esophagitis; F41.9 Anxiety disorder, unspecified; F32.A Depression, unspecified; M19.90 Unspecified osteoarthritis, unspecified site; G89.29 Other chronic pain; M54.9 Dorsalgia, unspecified; F17.210 Nicotine dependence, cigarettes, uncomplicated; N40.0 Benign prostatic hyperplasia without lower urinary tract symptoms; H91.90 Unspecified hearing loss, unspecified ear; H54.7 Unspecified visual loss; K59.09 Other constipation; M54.2 Cervicalgia; Z79.52 Long term (current) use of systemic steroids; Z90.89 Acquired absence of other organs; Z98.49 Cataract extraction status, unspecified eye; Z86.16 Personal history of COVID-19; Z79.899 Other long term (current) drug therapy; Z98.890 Other specified postprocedural states; W18.30XA Fall on same level, unspecified, initial encounter; Y93.01 Activity, walking, marching and hiking; Y92.410 Unspecified street and highway as the place of occurrence of the external cause
CPT/HCPCS: 0241U; 36415; 71046; 73502; 80048; 80053; 85025; 94640; 97110; 97161; 97165; 97530; 99285; 99222; 99232; 99239; A9270-GY; J1171; J1644; J7512; J7620

== ENCOUNTER 2024-07-13 09:59 | Emergency (ER) | payer MEDICARE, MEDICAID ==
[2024-07-13] MEDS ORDERED: Sodium Chloride 0.9% 10 ML Syringe FLUSH PRN (10:09)
[2024-07-13 10:12] VITALS: BP 149/86; PULSE 83
[2024-07-13 10:23] LABS: BASOPHILS ABSOLUTE AUTO 0.1 x10-3/uL (0.0-0.3); BASOPHILS PERCENT AUTO 1.1 % (0.3-3.8); EOSINOPHILS ABSOLUTE AUTO 0.2 x10-3/uL (0.0-0.6); HEMATOCRIT 36.3 % (38.3-50.1); HEMOGLOBIN 12.2 g/dL (12.9-17.7); LYMPHOCYTES ABSOLUTE AUTO 1.8 x10-3/uL (0.5-4.5); LYMPHOCYTES PERCENT AUTO 16.1 % (15.8-45.3); MEAN CORPUSCULAR HEMOGLOBIN 32.9 pg (27.0-33.3); MEAN CORPUSCULAR HGB CONC 33.7 g/dL (28.7-35.3); MEAN CORPUSCULAR VOLUME 97.7 fL (80.8-98.7); MEAN PLATELET VOLUME 7.2 fL (6.7-11.0); MONOCYTES ABSOLUTE AUTO 0.9 x10-3/uL (0.0-1.2); MONOCYTES PERCENT AUTO 7.9 % (5.5-15.2); NEUTROPHILS ABSOLUTE AUTO 8.1 x10-3/uL (1.7-6.9); NEUTROPHILS PERCENT AUTO 72.9 % (40.3-71.8); PLATELET COUNT,PLT 243 x10(3)uL (117-477); RED BLOOD CELL COUNT 3.72 x10(6)uL (3.90-5.90); RED CELL DISTRIBUTION WIDTH 14.4 % (12.4-15.0); WHITE BLOOD CELL COUNT,WBC 11.1 x10-3/uL (3.2-10.1)
[2024-07-13 10:44] LABS: TROPONIN I 7.9 pg/mL (4.0-60.3)
[2024-07-13 10:46] LABS: BLOOD UREA NITROGEN,BUN 29 mg/dL (7-18); BUN/CREATININE RATIO 26.4 (9-20); CALCIUM 8.4 mg/dL (8.6-10.2); CARBON DIOXIDE,CO2 27 mmol/L (21-32); CHLORIDE,CL 107 mmol/L (100-110); CREATININE 1.1 mg/dL (0.70-1.30); EST CRCL DRUG DOSING (CG) 37.02 mL/min; ESTIMATED GFR 70 mL/min (>60); GLUCOSE RANDOM 122 mg/dL (80-116); SODIUM,NA 143 mmol/L (135-145)
[2024-07-13 11:04] LABS: A/G RATIO 1.1; ALANINE AMINOTRANSFERASE,ALT 45 U/L (12-36); ALBUMIN 3.4 g/dL (3.2-4.6); ALKALINE PHOSPHATASE 83 IU/L (56-112); ASPARTATE AMNIOTRANSFERASE,AST 20 IU/L (5-25); BILIRUBIN TOTAL 0.4 mg/dL (0.1-1.3); PROTEIN TOTAL,TP 6.6 g/dL (6.0-8.0)
[2024-07-13 12:51] LABS: BILIRUBIN,URINE NEGATIVE (NEGATIVE); GLUCOSE,URINE NORMAL (NORMAL); KETONES,URINE NEGATIVE (NEGATIVE); LEUKOCYTE ESTERASE,URINE NEGATIVE (NEGATIVE); NITRITE,URINE NEGATIVE (NEGATIVE); OCCULT BLOOD,URINE NEGATIVE (NEGATIVE); PROTEIN,URINE NEGATIVE (NEGATIVE); UROBILINOGEN,URINE NORMAL (NEGATIVE)
[2024-07-13 12:53] LABS: APPEARANCE,URINE CLEAR (CLEAR); COLOR,URINE YELLOW (YELLOW)
== END 2024-07-13 14:19 | disposition swing bed (61) ==
LOC: FB.ED 09:59
DX: D64.9 Anemia, unspecified (principal); J44.9 Chronic obstructive pulmonary disease, unspecified; B34.9 Viral infection, unspecified; K21.9 Gastro-esophageal reflux disease without esophagitis; Z86.16 Personal history of COVID-19; Z79.899 Other long term (current) drug therapy; Z90.49 Acquired absence of other specified parts of digestive tract
CPT/HCPCS: 36415; 71045; 80053; 81003; 83880; 84484; 85025; 93005; 93010; 99285

== ENCOUNTER 2024-07-13 13:31 | Inpatient (IN) | payer MEDICARE, MEDICAID ==
[2024-07-13] MEDS ORDERED: Acetaminophen 325 MG Tab PO PRN (14:48)
[2024-07-13] MEDS ORDERED: Ondansetron 4 MG Tab.DIS PO PRN (14:48)
[2024-07-13] MEDS ORDERED: Melatonin 3 MG Tab PO PRN (14:48)
[2024-07-13] MEDS ORDERED: Polyethylene Glycol 3350 Powder 17 GM Packet PO PRN (14:48)
[2024-07-13] MEDS ORDERED: Albuterol 6.7 GM Inhaler INH PRN (15:22)
[2024-07-13] MEDS ORDERED: Naloxone 4 MG Nasal Spray NAS PRN (15:22)
[2024-07-13] MEDS ORDERED: Cyclobenzaprine 10 MG Tab PO PRN (15:48)
[2024-07-13] MEDS: Acetaminophen/HYDROcodone 325-10 MG Tab PO SCH (16:17)
[2024-07-13] MEDS: Loperamide 2 MG Cap PO PRN (16:56)
[2024-07-13] MEDS: traZODone 50 MG Tab PO SCH (20:09)
[2024-07-13] MEDS: Gabapentin 300 MG Cap PO SCH (20:09)
[2024-07-13] MEDS: Tamsulosin 0.4 MG Cap.ER PO SCH (20:09)
[2024-07-14] MEDS: Nicotine 14 MG/24 Hr Patch TRDERM SCH (09:22)
[2024-07-14] MEDS: Tiotropium Bromide 4 GM Inhalation Spray (2.5mcg/1 dose; 10 doses) INH SCH (09:23)
[2024-07-14] MEDS: Ferrous Sulfate 325 MG Tab PO SCH (09:24)
[2024-07-14] MEDS: Citalopram 20 MG Tab PO SCH (09:24)
[2024-07-15 12:58] VITALS: BP 150/69; PULSE 77
== END 2024-07-15 13:50 | DRG 948 ==
LOC: FB.MS 13:31
PROVIDERS: ADMIT Family Medicine; ATTEND Family Medicine
DX: R53.81 Other malaise (principal); R64 Cachexia; Z68.1 Body mass index [BMI] 19.9 or less, adult; S32.9XXD Fracture of unspecified parts of lumbosacral spine and pelvis, subsequent encounter for fracture with routine healing; K21.9 Gastro-esophageal reflux disease without esophagitis; K59.09 Other constipation; F41.9 Anxiety disorder, unspecified; F32.A Depression, unspecified; M19.90 Unspecified osteoarthritis, unspecified site; M54.2 Cervicalgia; H54.7 Unspecified visual loss; H91.90 Unspecified hearing loss, unspecified ear; J44.9 Chronic obstructive pulmonary disease, unspecified; N40.0 Benign prostatic hyperplasia without lower urinary tract symptoms; D64.9 Anemia, unspecified; R19.7 Diarrhea, unspecified; Z72.0 Tobacco use; Z79.52 Long term (current) use of systemic steroids; Z86.16 Personal history of COVID-19; Z98.49 Cataract extraction status, unspecified eye; Z79.899 Other long term (current) drug therapy; Z98.890 Other specified postprocedural states; X58.XXXD Exposure to other specified factors, subsequent encounter
CPT/HCPCS: 97161-GP; 97165-GO; 99305; 99315; A9270-GY

== ENCOUNTER 2024-10-31 16:08 | Emergency (ER) | payer MEDICARE, MEDICAID ==
[2024-10-31 16:46] LABS: HEMATOCRIT 38.9 % (38.3-50.1); MEAN CORPUSCULAR HEMOGLOBIN 32.4 pg (27.0-33.3); MEAN CORPUSCULAR HGB CONC 33.5 g/dL (28.7-35.3); MEAN CORPUSCULAR VOLUME 96.6 fL (80.8-98.7); MEAN PLATELET VOLUME 7.6 fL (6.7-11.0); PLATELET COUNT,PLT 206 x10(3)uL (117-477); RED BLOOD CELL COUNT 4.02 x10(6)uL (3.90-5.90); RED CELL DISTRIBUTION WIDTH 13.2 % (12.4-15.0); WHITE BLOOD CELL COUNT,WBC 16.7 x10-3/uL (3.2-10.1)
[2024-10-31 16:49] LABS: BLOOD UREA NITROGEN,BUN 23 mg/dL (7-18); BUN/CREATININE RATIO 17.7 (9-20); CALCIUM 9.3 mg/dL (8.6-10.2); CARBON DIOXIDE,CO2 29 mmol/L (21-32); CHLORIDE,CL 99 mmol/L (100-110); CREATININE 1.3 mg/dL (0.70-1.30); ESTIMATED GFR 57 mL/min (>60); GLUCOSE RANDOM 130 mg/dL (80-116); POTASSIUM,K 4.9 mmol/L (3.5-5.3); SODIUM,NA 139 mmol/L (135-145)
[2024-10-31 16:55] LABS: A/G RATIO 0.9; ALANINE AMINOTRANSFERASE,ALT 36 U/L (12-36); ALKALINE PHOSPHATASE 124 IU/L (56-112); ASPARTATE AMNIOTRANSFERASE,AST 20 IU/L (5-25); BILIRUBIN TOTAL 0.8 mg/dL (0.1-1.3); PROTEIN TOTAL,TP 8.4 g/dL (6.0-8.0)
[2024-10-31 16:57] LABS: TROPONIN I 8.3 pg/mL (4.0-60.3)
[2024-10-31 17:04] LABS: C-REACTIVE PROTEIN 10.49 mg/dL (<0.50)
[2024-10-31 17:06] LABS: BILIRUBIN,URINE NEGATIVE (NEGATIVE); GLUCOSE,URINE NORMAL (NORMAL); KETONES,URINE NEGATIVE (NEGATIVE); LEUKOCYTE ESTERASE,URINE NEGATIVE (NEGATIVE); NITRITE,URINE NEGATIVE (NEGATIVE); OCCULT BLOOD,URINE MODERATE (NEGATIVE); PROTEIN,URINE NEGATIVE (NEGATIVE); UROBILINOGEN,URINE NORMAL (NEGATIVE)
[2024-10-31 17:07] LABS: APPEARANCE,URINE CLEAR (CLEAR); BACTERIA,URINE FEW (NS); COLOR,URINE YELLOW (YELLOW); SQUAMOUS EPITHELIAL CELLS,UR FEW (NS,R,O); WBC,URINE 0-5 (0-5)
[2024-10-31 17:08] LABS: BAND PERCENT MAN 1 % (0-6); LYMPHOCYTES PERCENT MAN 6 % (13-37); MONOCYTES PERCENT MAN 10 % (4-12); SEG NEUTROPHILS PERCENT MAN 83 % (46-82)
[2024-10-31] MEDS ORDERED: Sodium Chloride 0.9% 10 ML Syringe FLUSH PRN (17:27)
[2024-10-31] MEDS: Acetaminophen 500 MG Tab PO ONE (18:42)
[2024-10-31] MEDS: Sodium Chloride 0.9% 500 ML IV ONE (18:44)
[2024-10-31] MEDS ORDERED: Levofloxacin 500 MG Tab PO ONE (18:57)
[2024-10-31] MEDS: Doxycycline 100 MG Tab PO ONE (19:08)
[2024-10-31] MEDS: cefTRIAXone 1 GM Vial IVPUSH ONE (19:08)
[2024-10-31 21:22] VITALS: BP 176/83; PULSE 94
== END 2024-10-31 21:00 | disposition home or self-care (01) ==
LOC: FB.ED 16:08
DX: E86.0 Dehydration (principal); J18.9 Pneumonia, unspecified organism; J44.9 Chronic obstructive pulmonary disease, unspecified; Z79.51 Long term (current) use of inhaled steroids; Z79.899 Other long term (current) drug therapy
CPT/HCPCS: 36415; 70450; 71045; 80053; 81001; 83735; 84484; 85025; 86140; 87428; 93005; 96361; 96374; 99285; A9270; J0696

== ENCOUNTER 2025-05-25 14:09 | Emergency (ER) | payer MEDICARE ==
[2025-05-25 16:02] VITALS: BP 119/70; PULSE 85
== END 2025-05-25 16:00 | disposition home or self-care (01) ==
LOC: FB.ED 14:09
DX: S20.212A Contusion of left front wall of thorax, initial encounter (principal); J44.9 Chronic obstructive pulmonary disease, unspecified; F17.200 Nicotine dependence, unspecified, uncomplicated; Z79.899 Other long term (current) drug therapy; Z86.16 Personal history of COVID-19; Z90.49 Acquired absence of other specified parts of digestive tract; W01.0XXA Fall on same level from slipping, tripping and stumbling without subsequent striking against object, initial encounter
CPT/HCPCS: 71101-LT; 99283